=== PATIENT | female | born 1950 ===

== ENCOUNTER 2022-12-12 19:15 | Inpatient (IN) | payer OTHER, SELFPAY ==
--- OUTSIDE RECORDS SUMMARY | 2022-12-12 19:19 | XMS_ITS | Continuity of Care Document ---
Author Name Unknown Organization [facility] Address [address] [place] [address]- Care Team Providers Care Knife Setter Assembler Name Role Phone Loida CONTRERAS, Phill Skelton Primary Care Physician Encounter [facility] [place] Date(s): 06/12/20 - 07/12/20 [facility] [address] [place] [address]- Attending Physician: Doc Zapata Admitting Physician: Doc Zapata Referring Physician: AdmDoc hudson Allergies, Adverse Reactions, Alerts Substance Reaction Severity Status sulfa drugs Active Nickel Active Medications raloxifene 60 mg oral tablet 0 Refills, Maintenance, 06/13/20 7:07:00 EST, Partial fill upon patient request if the prescriptionis for a schedule II opioid drug. Start Date: 06/13/20 Status: Ordered Problem List Condition Effective Dates Status Health Status Inform ant Osteoporosis(Confirmed) Active Social History Social History Type Response Smoking Status Never smoker entered on: 06/12/14 Sex
--- OUTSIDE RECORDS SUMMARY | 2022-12-12 19:19 | XMS_ITS | Continuity of Care Document ---
Author Name Unknown Organization [facility] ter Address [address] [place] [address]- Care Team Providers Care Chemist Name Role Phone Phill Mariscal MD Primary Care Physician Encounter [facility] [place] Date(s): 10/20/19 - 10/21/[address] [address]- [facility] Attending Physician: Phill Mariscal MD Allergies, Adverse Reactions, Alerts Substance Reaction Severity Status sulfa drugs Active Nickel Active Problem List Condition Effective Dates Status Health Status Inform ant Osteoporosis(Confirmed) Active Social History Social History Type Response Smoking Status Never smoker entered on: 06/12/14 Sex
--- OUTSIDE RECORDS SUMMARY | 2022-12-12 19:19 | XMS_ITS | Continuity of Care Document ---
Author Name Unknown Organization [facility] Address [address] [facility], [address] [place] [address]- Care Team Providers Care Surveillance Sensor Operator Name Role Phone Phill Mariscal MD Primary Care Physician [phone] Encounter 06/29/21 - 07/06/21 [facility] [address], [facility] [address] [place] [address]- Attending Physician: Phill Mariscal MD Admitting Physician: Phill Mariscal MD Referring Physician: Phill Mariscal MD Allergies, Adverse Reactions, Alerts Substance Reaction Severity Status sulfa drugs Active Nickel Active Medications raloxifene 60 mg oral tablet 1 tablet = 60 mg, By Mouth, Daily, # 90 tablet, 6 Refills, Maintenance, 02/15/21 9:56:00 EST, Tablet, [facility] #[id number], 158, cm, 02/15/21 9:27:00 EST, Height Start Date: 02/15/21 Status: Ordered Problem List Condition Effective Dates Status Health Status Inform ant Osteoporosis(Confirmed) Active Social History Social History Type Response Smoking Status Never smoker entered on: 06/12/14 Sex
--- OUTSIDE RECORDS SUMMARY | 2022-12-12 19:19 | XMS_ITS | Continuity of Care Document ---
Author Name Unknown Organization [facility] Address [address] [facility], [address] [place] [address]- Care Team Providers Care Personal Lines Account Manager Name Role Phone Loida CONTRERAS, Phill Skelton Primary Care Physician Encounter 06/29/21 - 07/06/21 [facility] [address], [facility] [address] [place] [address]- Attending Physician: [facility] , Self Referral Admitting Physician: [facility] , Self Referral Referring Physician: [facility] , Self Referral Allergies, Adverse Reactions, Alerts Substance Reaction Severity Status sulfa drugs Active Nickel Active Medications raloxifene 60 mg oral tablet 1 tablet = 60 mg, By Mouth, Daily, # 90 tablet, 6 Refills, Maintenance, 02/15/21 9:56:00 EST, Tablet, [id number], 158, cm, 02/15/21 9:27:00 EST, Height Start Date: 02/15/21 Status: Ordered Problem List Condition Effective Dates Status Health Status Inform ant Osteoporosis(Confirmed) Active Social History Social History Type Response Smoking Status Never smoker entered on: 06/12/14 Sex
--- OUTSIDE RECORDS SUMMARY | 2022-12-12 19:19 | XMS_ITS | Continuity of Care Document ---
Author Name Unknown Organization [facility] Address [address] [place] [address]- Care Team Providers Care Synthetic Staple Extruder Name Role Phone Phill Mariscal MD Primary Care Physician Encounter [facility] [place] Date(s): 03/29/22 - 04/28/22 [facility] [address] [place] [address]- Allergies, Adverse Reactions, Alerts Substance Reaction Severity Status sulfa drugs Active Nickel Active Medications raloxifene 60 mg oral tablet 1 tablet = 60 mg, By Mouth, Daily, # 90 tablet, 1 Refills, Maintenance, 03/29/22 8:53:00 EST, Tablet, [id number], 158, cm, 02/15/21 9:27:00 EST, Height Start Date: 03/29/22 Status: Ordered Problem List Condition Confirmation Course Effective Dates Status Health St [facility] Informant Osteoporosis Confirmed Active Social History Social History Type Response Smoking Status Never smoker entered on: 06/12/14 Sex Patient Care team information Care Team Personnel Name: Phill Mariscal MD Position: S Physician -Physician Practices Member Role: PCP Address: Address: [address] [place] [id number] [place] [address] Care Team Related Persons Name: MIRNA KAUR Address: home [address] [place] [id number]
--- OUTSIDE RECORDS SUMMARY | 2022-12-12 19:19 | XMS_ITS | Continuity of Care Document ---
Author Name Unknown Organization [facility] Address [address] [facility] [address] [place] [address]- Care Team Providers Care Culinary Assistant Name Role Phone Loida CONTRERAS, Phill Skelton Primary Care Physician [phone] Encounter 01/30/21 - 02/06/21 [facility] [address] [facility], [address] [place] [address]- Attending Physician: Claudine Neely MD Admitting Physician: Claudine Neely MD Referring Physician: Claudine Neely MD Allergies, Adverse Reactions, Alerts Substance Reaction Severity Status sulfa drugs Active Nickel Active Medications raloxifene 60 mg oral tablet 0 Refills, Maintenance, 06/13/20 7:07:00 EST, Partial fill upon patient request if the prescriptionis for a schedule II opioid drug. Start Date: 06/13/20 Status: Ordered Problem List Condition Effective Dates Status Health Status Inform ant Osteoporosis(Confirmed) Active Results Radiology Reports * Exam Date Time Procedure Performing Provider Status 01/30/21 3:25 PM Dexa Bone Density (Axial) VoJuani daniels di A; Auth (Verified) Notes: (Dexa Bone Density (Axial)) Reason For Exam: Osteoporosis RESULT: DEXA BONE DENSITY (AXIAL) Bone Density Report Name: SUSANA KAUR Age: 70 Sex: Female Ethnicity: White Date of : 1950 Indication: OSTEOPOROSIS. Referring Provider: CLAUDINE NEELY Study: Bone densitometry was performed. Exam Date: January 30, 2021 Accession number: [id number] Bone Density: Region BMD T-score Z-score Classification AP Spine (L1-L4) 0.714 -3.0 -0.9 Osteoporosis Femoral Neck (Left) 0.524 -2.9 -1.1 Osteoporosis Total Hip (Left) 0.626 -2.6 -1.1 Osteoporosis World Health Organization criteria for BMD impression classify patients as: Normal (T-score at or above -1.0), Osteopenia (T-score between -1.0 and -2.5), or Osteoporosis (T-score at or below -2.5). 10-year Fracture Risk: FRAX not reported because: Some T-score for Spine Total or Hip Total or Femoral Neck at or below -2.5 Treated for osteoporosis Previous Exams: Region Exam Age BMD T-score BMD Change BMD Change Date g/cm2 vs Baseline vs Previous AP Spine(L1-L4) 01/30/2021 70 0.714 -3.0 3.5%* 4.6%* 12/18/2018 68 0.683 -3.3 -1.0% -1.0% 07/13/2015 65 0.690 -3.2 Total Hip(Left) 01/30/2021 70 0.626 -2.6 -0.6% 0.8% 12/18/2018 68 0.621 -2.6 -1.4% -1.4% 07/13/2015 65 0.630 -2.6 Femoral Neck(Left) 01/30/2021 70 0.524 -2.9 -0.8% 11.0%* 12/18/2018 68 0.472 -3.4 -10.7%* -10.7%* 07/13/2015 65 0.528 -2.9 *Denotes significance at 95% confidence level, LSC for AP Spine = 0.022 g/cm2, LSC for Total Hip = 0.027 g/cm2 Clinical Information Provided by Patient: Is being treated for osteoporosis Has used the following medications: Evista (i.e. raloxifene), Fosamax (i.e. alendronate), Prolia (i.e. denosumab), Vitamin D, Calcium Patient maximum height was 64 Menopause Age: 55 Onset of menses at age 14 Number of children 2 Impression: The patient has osteoporosis as determined by WHO criteria. Based on the results of the patient's bone density assessment, the risk of future fracture increases approximately two fold for each 1.0 SD decrease in T-score. However, low BMD is not the only risk factor for a future fragility fracture. Other clinical risk factors for osteoporotic fracture should be considered in ascertaining this patient's future fracture risk including the patient's age, previous osteoporotic (fragility) fracture, estrogen deficiency/hypogonadism, risk of falling, use of medications implicated in bone loss (glucocorticoids), family history of osteoporotic fracture, diseases and conditions associated with bone loss, low body weight, smoking, high bone turnover, etc. Combining low BMD and other clinical risk factors result in a more precise assessment of future fracture risk. Secondary causes for osteoporosis, such as osteomalacia, other metabolic bone disorders, and diseases and conditions that may contribute to accelerated bone loss may have to be considered depending on the clinical situation. A repeat bone density assessment should be considered in two years. Reported by: Monique Centeno M.D. on 02/02/2021 2:14:00 PM. Dictated By: Monique Centeno MD Dictated Date/Time: 02/02/21 2:15 pm Reviewed By: Monique Centeno MD Signed By: Monique Centeno MD Signed Date/Time: 02/02/21 2:15 pm Transcribed By: CSMukesh Transcribed Date/Time: 02/02/21 2:15 pm Social History Social History Type Response Smoking Status Never smoker entered on: 06/12/14 Sex
--- OUTSIDE RECORDS SUMMARY | 2022-12-12 19:19 | XMS_ITS | Continuity of Care Document ---
Author Name Unknown Organization [facility] Address [address] [place] [address]- Care Team Providers Care Kiln Labourer Name Role Phone Phill Mariscal MD Primary Care Physician [phone] Encounter [facility] [place] Date(s): 06/12/22 - 10/10/22 [facility] [address] [place] [address] Attending Physician: Claudine Neely MD Admitting Physician: Claudine Neely MD Referring Physician: Phill Mariscal MD Allergies, [...] Team Personnel Name: Phill Mariscal MD Position: [facility] Physician - Primary Care Member Role: PCP Address: Address: [address] [place] [id number] [place] [address] Care Team Related Persons Name: MIRNA KAUR Address: home [address] [place] [address]
--- OUTSIDE RECORDS SUMMARY | 2022-12-12 19:19 | XMS_ITS | Continuity of Care Document ---
Author Name Unknown Organization [facility] Address [address] [place] [address]- Care Team Providers Care Research Physician Name Role Phone Loida CONTRERAS, Phill Skelton Primary Care Physician [phone] Encounter [facility] [place] Date(s): 06/29/21 - 07/29/21 [facility] [address] [place] [address] Allergies, Adverse Reactions, Alerts Substance Reaction Severity [...]
--- OUTSIDE RECORDS SUMMARY | 2022-12-12 19:19 | XMS_ITS | Continuity of Care Document ---
Author Name Unknown Organization [facility] ter Address [address] [place] [address]- Care Team Providers Care Ophthalmology Surgical Technician Name Role Phone Phill Mariscal MD Primary Care Physician [phone] Encounter [facility] Date(s): 09/07/20 - 12/07/[address] [address] Attending Physician: Phill Mariscal MD Allergies, Adverse [...]
--- OUTSIDE RECORDS SUMMARY | 2022-12-12 19:19 | XMS_ITS | Continuity of Care Document ---
Author Name Unknown Organization [facility] ter Address [address] [place] [address]- Care Team Providers Care General Foundry Worker Name Role Phone Phill Mariscal MD Primary Care Physician Encounter [facility] Date(s): 12/06/19 - 12/07/[address] [address]- [facility] Attending Physician: Phill Mariscal MD Allergies, Adverse Reactions, Alerts Substance Reaction Severity Status sulfa drugs Active Nickel Active Problem List Condition Effective Dates Status Health Status Inform ant Osteoporosis(Confirmed) Active Social History Social History Type Response Smoking Status Never smoker entered on: 06/12/14 Sex
--- OUTSIDE RECORDS SUMMARY | 2022-12-12 19:19 | XMS_ITS | Continuity of Care Document ---
Author Name Unknown Organization [facility] ter Address [address] [place] [address]- Care Team Providers Care Bariatric Nurse Name Role Phone Phill Mariscal MD Primary Care Physician [phone] Encounter [facility] Date(s): 12/31/19 - 01/01/[address] [address]- [facility] Attending Physician: Phill Mariscal MD Allergies, Adverse Reactions, Alerts Substance Reaction Severity Status sulfa drugs Active Nickel Active Problem List Condition Effective Dates Status Health Status Inform ant Osteoporosis(Confirmed) Active Social History Social History Type Response Smoking Status Never smoker entered on: 06/12/14 Sex
--- OUTSIDE RECORDS SUMMARY | 2022-12-12 19:19 | XMS_ITS | Continuity of Care Document ---
Author Name Unknown Organization [facility] Address [address] [facility], [address] [place] [address]- Care Team Providers Care Hydrotherapist Name Role Phone Phill Mariscal MD Primary Care Physician Encounter 04/28/20 - 05/05/20 [facility] [address], [address] [place] [address]- Attending Physician: Phill Mariscal MD Admitting Physician: Phill Mariscal MD Referring Physician: Phill Mariscal MD Allergies, Adverse Reactions, Alerts Substance Reaction Severity Status sulfa drugs Active Nickel Active Problem List Condition Effective Dates Status Health Status Inform ant Osteoporosis(Confirmed) Active Social History Social History Type Response Smoking Status Never smoker entered on: 06/12/14 Sex
--- OUTSIDE RECORDS SUMMARY | 2022-12-12 19:19 | XMS_ITS | Continuity of Care Document ---
Author Name Unknown Organization [facility] Address [address] [place] [address]- Care Team Providers Care Supervisor Shuttle Preparation Name Role Phone Phill Mariscal MD Primary Care Physician [phone] Encounter [facility] [place] Date(s): 03/28/22 - 04/27/22 [facility] [address] [place] [address]- Allergies, Adverse Reactions, Alerts Substance Reaction Severity [...] -Physician Practices Member Role: PCP Address: Address: [address] [place] [phone] [place] [address] Care Team Related Persons Name: MIRNA KAUR Address: home [address] [place] [address]
--- OUTSIDE RECORDS SUMMARY | 2022-12-12 19:19 | XMS_ITS | Continuity of Care Document ---
Author Name Unknown Organization [facility] Address [address] [place] [address]- Care Team Providers Care Car Seat Upholsterer Name Role Phone Phill Mariscal MD Primary Care Physician Encounter [facility] Date(s): 09/10/22 - 10/10/22 [facility] [address] [place] [address] Attending Physician: AdmDoc hudson Admitting Physician: Admtr, Doc Referring Physician: AdmtrDoc Allergies, Adverse Reactions, Alerts Substance Reaction Severity [...] Team Personnel Name: Phill Mariscal MD Position: [facility] Physician - Primary Care Member Role: PCP Address: Address: [address] [place] [id number] [place] [address] Care Team Related Persons Name: MIRNA KAUR Address: home [address] [place] [address]
--- OUTSIDE RECORDS SUMMARY | 2022-12-12 19:19 | XMS_ITS | Continuity of Care Document ---
Author Name Unknown Organization [facility] Address [address] [place] [address]- Care Team Providers Care Editor Managing Director Name Role Phone Phill Mariscal MD Primary Care Physician En[place] [facility] Date(s): 11/16/21 - 03/16/22 [facility] [address] [place] [address] Attending Physician: Claudine Neely MD Admitting Physician: [...] Date: 02/15/21 Status: Ordered Problem List Condition Confirmation Course Effective Dates Status Health [facility] Informant Osteoporosis Confirmed Active Social History Social History Type Response Smoking Status Never smoker entered on: 06/12/14 Sex Patient Care team information Care Team Personnel Name: Phill Mariscal MD Position: [facility] Physician -Physician Practices Member Role: PCP Address: Address: [address] [place] [phone] [place] [address] Care Team Related Persons Name: MIRNA KAUR Address: home [address] [place] [phone]
[2022-12-12 22:02] VITALS: BP 127/63; PULSE 77; TEMP 36.9; O2SAT 98
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
[2022-12-13 08:00] VITALS: BP 125/71; PULSE 74; RESP 17; TEMP 36.1; O2SAT 97
[2022-12-13 08:24] LABS: Estimated Average Glucose 100 mg/dL; Hemoglobin A1c % 5.1 % (<6.0)
[2022-12-13 08:38] LABS: Alanine Aminotransferase 20 U/L (0-31); Albumin Level 4.1 g/dL (3.5-5.0); Alkaline Phosphatase 59 U/L (39-117); Anion Gap 12 (12-20); Aspartate Amino Transferase 22 U/L (5-31); Bilirubin Total 0.5 mg/dL (0.0-1.0); Blood Urea Nitrogen 15 mg/dL (9-16); Calcium 9.9 mg/dL (8.4-10.2); Carbon Dioxide 27 mmol/L (22-29); Chloride 105 mmol/L (96-108); Cholesterol 182 mg/dL (<200); Estimated Glomerular Filt Rate 59; Glucose Fasting 109 mg/dL (60-99); HDL Cholesterol 69 mg/dL (>40); LDL Cholesterol Calculated 95 mg/dL (<100); Potassium 4.3 mmol/L (3.3-5.1); Sodium 140 mmol/L (135-145); Total Protein 6.8 g/dL (6.5-8.0); Triglycerides 94 mg/dL (<150)
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
[2022-12-13 08:54] LABS: Thyroid Stimulating Hormone 2.24 uIU/mL (0.32-4.0)
[2022-12-13 09:12] LABS: Folate 13.4 ng/mL (> or = 4.0); Vitamin B12 1029 pg/mL (200-900)
[2022-12-13] MEDS: Acetaminophen 325 MG TABLET 650 MG PO (09:42)
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
[2022-12-13 19:40] VITALS: BP 149/59; PULSE 85; RESP 18; TEMP 36.4; O2SAT 97
[2022-12-14 08:00] VITALS: BP 103/55; PULSE 80; RESP 16; TEMP 36.9; O2SAT 97
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
[2022-12-14 18:00] VITALS: BP 128/66; PULSE 77; RESP 19; TEMP 36.2; O2SAT 97
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
[2022-12-15 07:45] VITALS: BP 122/72; PULSE 91; RESP 16; TEMP 36.4; O2SAT 97
[2022-12-15] MEDS: Acetaminophen 325 MG TABLET 650 MG PO (11:22)
--- NOTE | 2022-12-15 15:44 | HO.PSYCHPN ---
Subjective Subjective Date of Service: 12/15/22 Reason For Visit: Delusional Interim History: Remains reluctant to discuss pre-admission circumstances ie neighbor, police, escalation of being targeted, but trying not to talk about this as she cannot prove anything . Reports feeling safe in the hospital. Denied depression. No medication concerns. Still does not believe she needs any antipsychotic medications- declined OLZ. Medication Compliance: No Side effects from medications: No Attending Groups: Yes Review of Systems Acute medical concerns: No Review of Systems Review of Systems Unremarkable Mental Status Exam Mental Status Exam Patient Appearance: Appropriate Patient Orientation: Person, Place and Situation Level of Consciousness: Awake and Appropriate Patient Behavior: Guarded and Passive Mood Description: Withdrawn and Constricted Affect Description: Constricted Patient Cognition Impaired: Yes Ability to Follow Directions: Good Speech Pattern: Clear Diagnostics Vital Signs (24Hr): Vital Signs - 24 hr 12/14/22 18:00 12/15/22 07:45 Temperature 97.2 F 97.5 F Pulse Rate 77 91 Respiratory Rate 19 16 Blood Pressure 128/66 122/72 Pulse Oximetry 97 97 Oxygen Delivery Method Room Air Room Air Labs 12/13/22 08:08 Medications Medications Current Medications Acetaminophen (Acetaminophen 325 Mg Tablet) 650 mg PO Q6H PRN PRN Reason: Headache/Pain Mild Scale (1-3) Last Admin: 12/15/22 11:22 Dose: 650 mg Al Hydroxide/Mg Hydroxide (Magnesium Hydrox/Alum Hydrox 30 Ml Oral.Susp) 30 ml PO Q6H PRN PRN Reason: Heartburn/Nausea Hydroxyzine HCl (Hydroxyzine Hcl 25 Mg Tablet) 25 mg PO Q6H PRN PRN Reason: Anxiety Magnesium Hydroxide (Milk Of Magnesia 30 Ml Oral.Susp) 30 ml PO DAILY PRN PRN Reason: Constipation Olanzapine (Olanzapine 2.5 Mg Tablet) 2.5 mg PO BEDTIME OLIVE Last Admin: 12/14/22 20:34 Dose: Not Given Trazodone HCl (Trazodone Hcl 50 Mg Tablet) 50 mg PO BEDTIME PRN PRN Reason: Insomnia Allergies Allergies Allergy/AdvReac Type Severity Reaction Status Date / Time nickel Allergy Gastrointestinal Verified 12/12/22 21:18 Upset Sulfa (Sulfonamide Allergy Anaphylaxis Verified 12/12/22 21:18 Antibiotics) Assessment & Plan Assessment & Plan (1) Psychosis: Status: Acute Code(s): F29 - Unspecified psychosis not due to a substance or known physiological condition Assessment and Plan: The patient is an elderly female with a long history of psychotic symptoms and paranoia for the last 15 years but able to be functional in the community that was brought into the emergency room of another hospital for somatic symptoms such as vaginal bleeding and abdominal pain that she attributes to her did lucid thinking. The patient has never been treated before and she adamantly denies suicidal ideation even though that in on admission there were some concerns from the family about suicidality. Plan 1. Gather collateral information, we will try to contact the family and get more information. 2. The patient signed a conditional voluntary and and she was able to understand Casas warning. 3. We will continue medical workout. 4. I offer her a low dose of olanzapine at night 2.5 p.o. q.h.s. to target psychosis. 5. Start with mirtazapine for depression. 12/15/22: started OLZ, but declining same Reason for continued inpatient stay Substantial Risk for: inability to function and rapid decompensation Time Spent With Patient Time: Total time managing care of this patient today ____ minutes.
[2022-12-15 18:00] VITALS: BP 126/59; PULSE 86; RESP 17; TEMP 36.5; O2SAT 99
[2022-12-16 08:00] VITALS: BP 129/62; PULSE 79; RESP 18; TEMP 36.7; O2SAT 96
[2022-12-16] MEDS: Acetaminophen 325 MG TABLET 650 MG PO (10:10)
[2022-12-16 10:14] VITALS: BMI 20.7
--- NOTE | 2022-12-16 15:19 | HO.PSYCHPN ---
Subjective Subjective Date of Service: 12/16/22 Reason For Visit: Delusional Subjective Notes: Conditional Voluntary Interim History: The nursing staff reported the patient had been alert oriented x4 guarded disorganized at times stating that she had been having and Stalker. She slept well last night. She had been refusing her Zyprexa at night for the last 2 days. Today we had a long conversation and she agreed to try medications over the night to see if she could have side effects. Mental Status Exam Mental Status Exam Patient Appearance: Well Grooomed and Appropriate Patient Orientation: Person, Place and Situation Level of Consciousness: Awake and Appropriate Patient Behavior: Guarded and Passive Mood Description: Calm Affect Description: Constricted Patient Cognition Impaired: Yes Ability to Follow Directions: Good Speech Pattern: Clear Hallucinations: None Delusions: Not Present Thought Process: Linear Thought Content: positive for [place] and positive for Circumstantial Judgement: Fair Diagnostics Vital Signs (24Hr): Vital Signs - 24 hr 12/15/22 18:00 12/16/22 08:00 Temperature 97.7 F 98.0 F Pulse Rate 86 79 Respiratory Rate 17 18 Blood Pressure 126/59 L 129/62 Pulse Oximetry 99 96 Oxygen Delivery Method Room Air Room Air BMI result Body Mass Index 20.7 Labs 12/13/22 08:08 Medications Medications Current Medications Acetaminophen (Acetaminophen 325 Mg Tablet) 650 mg PO Q6H PRN PRN Reason: Headache/Pain Mild Scale (1-3) Last Admin: 12/16/22 10:10 Dose: 650 mg Al Hydroxide/Mg Hydroxide (Magnesium Hydrox/Alum Hydrox 30 Ml Oral.Susp) 30 ml PO Q6H PRN PRN Reason: Heartburn/Nausea Hydroxyzine HCl (Hydroxyzine Hcl 25 Mg Tablet) 25 mg PO Q6H PRN PRN Reason: Anxiety Magnesium Hydroxide (Milk Of Magnesia 30 Ml Oral.Susp) 30 ml PO DAILY PRN PRN Reason: Constipation Olanzapine (Olanzapine 2.5 Mg Tablet) 2.5 mg PO BEDTIME OLIVE Last Admin: 12/15/22 20:17 Dose: Not Given Trazodone HCl (Trazodone Hcl 50 Mg Tablet) 50 mg PO BEDTIME PRN PRN Reason: Insomnia Allergies Allergies Allergy/AdvReac Type Severity Reaction Status Date / Time nickel Allergy Gastrointestinal Verified 12/12/22 21:18 Upset Sulfa (Sulfonamide Allergy Anaphylaxis Verified 12/12/22 21:18 Antibiotics) Assessment & Plan Assessment & Plan (1) Psychosis: Status: Acute Code(s): F29 - Unspecified psychosis not due to a substance or known physiological condition Assessment and Plan: The patient is an elderly female with a long history of psychotic symptoms and paranoia for the last 15 years but able to be functional in the community that was brought into the emergency room of another hospital for somatic symptoms such as vaginal bleeding and abdominal pain that she attributes to her did lucid thinking. The patient has never been treated before and she adamantly denies suicidal ideation even though that in on admission there were some concerns from the family about suicidality. Plan 1. Gather collateral information, we will try to contact the family and get more information. 2. The patient signed a conditional voluntary and and she was able to understand Casas warning. 3. We will continue medical workout. 4. I offer her a low dose of olanzapine at night 2.5 p.o. q.h.s. to target psychosis. Reason for continued inpatient stay Substantial Risk for: inability to function, rapid decompensation and med/psych decompensation Time Spent With Patient Time: Total time managing care of this patient today ___20_ minutes.
[2022-12-16 18:00] VITALS: BP 126/60; PULSE 80; RESP 18; TEMP 36.6; O2SAT 99
[2022-12-16] MEDS: OLANZapine 2.5 MG TABLET PO (20:03)
[2022-12-17 09:30] VITALS: BP 116/57; PULSE 71; RESP 16; TEMP 36.9; O2SAT 99
--- NOTE | 2022-12-17 11:51 | P.PNPSI_ITS ---
Subjective Subjective Date of Service: 12/17/22 Reason For Visit: Delusional Subjective Notes: Conditional Voluntary Interim History: The nursing staff reported the patient tried for the 1st time Zyprexa night and she slept 8 hours. The staff has reported that she still perseverative regarding her Stalker. On interview we talk a little more about heard elusive thinking but she is adamant that she had been harassed by her Stalker. She denies side effects with Zyprexa. Mental Status Exam Mental Status Exam Patient Appearance: Appropriate Patient Orientation: Person and Situation Level of Consciousness: Awake and Appropriate Patient Behavior: Guarded and Passive Mood Description: Withdrawn Affect Description: Calm Patient Cognition Impaired: Yes Ability to Follow Directions: Good Speech Pattern: Clear Hallucinations: None Delusions: Paranoid Ideation Thought Process: Distracted and Evasive Thought Content: positive for Intact Judgement: Fair Diagnostics Vital Signs (24Hr): Vital Signs - 24 hr 12/16/22 18:00 12/17/22 09:30 Temperature 97.8 F 98.4 F Pulse Rate 80 71 Respiratory Rate 18 16 Blood Pressure 126/60 116/57 L Pulse Oximetry 99 99 Oxygen Delivery Method Room Air Room Air BMI result Body Mass Index 20.7 Labs 12/13/22 08:08 Medications Medications Current Medications Acetaminophen (Acetaminophen 325 Mg Tablet) 650 mg PO Q6H PRN PRN Reason: Headache/Pain Mild Scale (1-3) Last Admin: 12/16/22 10:10 Dose: 650 mg Al Hydroxide/Mg Hydroxide (Magnesium Hydrox/Alum Hydrox 30 Ml Oral.Susp) 30 ml PO Q6H PRN PRN Reason: Heartburn/Nausea Hydroxyzine HCl (Hydroxyzine Hcl 25 Mg Tablet) 25 mg PO Q6H PRN PRN Reason: Anxiety Magnesium Hydroxide (Milk Of Magnesia 30 Ml Oral.Susp) 30 ml PO DAILY PRN PRN Reason: Constipation Olanzapine (Olanzapine 2.5 Mg Tablet) 2.5 mg PO BEDTIME [facility] Last Admin: 12/16/22 20:03 Dose: 2.5 mg Trazodone HCl (Trazodone Hcl 50 Mg Tablet) 50 mg PO BEDTIME PRN PRN Reason: Insomnia Allergies Allergies Allergy/AdvReac Type Severity Reaction Status Date / Time nickel Allergy Gastrointestinal Verified 12/12/22 21:18 Upset Sulfa (Sulfonamide Allergy Anaphylaxis Verified 09/07/23 21:18 Antibiotics) Assessment & Plan Assessment & Plan (1) Psychosis: Status: Acute Code(s): F29 - Unspecified psychosis not due to a substance or known physiological condition Assessment and Plan: The patient is an elderly female with a long history of psychotic symptoms and paranoia for the last 15 years but able to be functional in the community that was brought into the emergency room of another hospital for somatic symptoms such as vaginal bleeding and abdominal pain that she attributes to her did lucid thinking. The patient has never been treated before and she adamantly denies suicidal ideation even though that in on admission there were some concerns from the family about suicidality. Plan 1. Gather collateral information, we will try to contact the family and get more information. 2. The patient signed a conditional voluntary and and she was able to understand Casas warning. 3. We will continue medical workout. 4. I offer her a low dose of olanzapine at night 2.5 p.o. q.h.s. to target psychosis. Reason for continued inpatient stay Substantial Risk for: inability to function, rapid decompensation and med/psych decompensation Time Spent With Patient Time: Total time managing care of this patient today __20__ minutes.
[2022-12-17 18:00] VITALS: BP 111/58; PULSE 73; RESP 17; TEMP 36.2; O2SAT 99
[2022-12-17] MEDS: OLANZapine 2.5 MG TABLET PO (21:57)
[2022-12-18 09:13] VITALS: BP 102/58; PULSE 85; RESP 18; TEMP 36.1; O2SAT 97
--- NOTE | 2022-12-18 14:54 | HO.PSYCHPN ---
Subjective Subjective Date of Service: 12/18/22 Reason For Visit: Delusional Subjective Notes: Conditional Voluntary Interim History: The nursing staff reported the patient does not have any insight into her paranoia and elusive thinking regarding her Stalker. She was seen in the common areas watching TV and social. The occupational therapist reported that she scored 27/30 on the [place] test and 5.6 on the [place] test. There is no evidence of dementia. Today we had a family meeting with her daughter, we explained her diagnosis and she agreed to the disposition plan to go back home with outpatient services next Friday. On interview the patient denies new symptoms, no side effects with Zyprexa. Mental Status Exam Mental Status Exam Patient Appearance: Well Grooomed and Appropriate Patient Orientation: Person, Place, Time and Situation Level of Consciousness: Awake and Appropriate Patient Behavior: Appropriate and Passive Mood Description: Calm Affect Description: Constricted Patient Cognition Impaired: No Ability to Follow Directions: Good Speech Pattern: Clear Hallucinations: None Delusions: Not Present Thought Process: Linear Thought Content: positive for Circumstantial Judgement: Fair Diagnostics Vital Signs (24Hr): Vital Signs - 24 hr 12/17/22 18:00 12/18/22 09:13 Temperature 97.2 F 97.0 F Pulse Rate 73 85 Respiratory Rate 17 18 Blood Pressure 111/58 L 102/58 L Pulse Oximetry 99 97 Oxygen Delivery Method Room Air Room Air BMI result Body Mass Index 20.7 Labs 12/13/22 08:08 Medications Medications Current Medications Acetaminophen (Acetaminophen 325 Mg Tablet) 650 mg PO Q6H PRN PRN Reason: Headache/Pain Mild Scale (1-3) Last Admin: 12/16/22 10:10 Dose: 650 mg Al Hydroxide/Mg Hydroxide (Magnesium Hydrox/Alum Hydrox 30 Ml Oral.Susp) 30 ml PO Q6H PRN PRN Reason: Heartburn/Nausea Hydroxyzine HCl (Hydroxyzine Hcl 25 Mg Tablet) 25 mg PO Q6H PRN PRN Reason: Anxiety Magnesium Hydroxide (Milk Of Magnesia 30 Ml Oral.Susp) 30 ml PO DAILY PRN PRN Reason: Constipation Olanzapine (Olanzapine 2.5 Mg Tablet) 2.5 mg PO BEDTIME [facility]IVE Last Admin: 12/17/22 21:57 Dose: 2.5 mg Trazodone HCl (Trazodone Hcl 50 Mg Tablet) 50 mg PO BEDTIME PRN PRN Reason: Insomnia Allergies Allergies Allergy/AdvReac Type Severity Reaction Status Date / Time nickel Allergy Gastrointestinal Verified 12/12/22 21:18 Upset Sulfa (Sulfonamide Allergy Anaphylaxis Verified 12/12/22 21:18 Antibiotics) Assessment & Plan Assessment & Plan (1) Psychosis: Status: Acute Code(s): F29 - Unspecified psychosis not due to a substance or known physiological condition Assessment and Plan: The patient is an elderly female with a long history of psychotic symptoms and paranoia for the last 15 years but able to be functional in the community that was brought into the emergency room of another hospital for somatic symptoms such as vaginal bleeding and abdominal pain that she attributes to her did lucid thinking. The patient has never been treated before and she adamantly denies suicidal ideation even though that in on admission there were some concerns from the family about suicidality. Plan 1. Gather collateral information, we will try to contact the family and get more information. 2. The patient signed a conditional voluntary and and she was able to understand Casas warning. 3. We will continue medical workout. 4. I offer her a low dose of olanzapine at night 2.5 p.o. q.h.s. to target psychosis. Reason for continued inpatient stay Substantial Risk for: inability to function, rapid decompensation and med/psych decompensation Time Spent With Patient Time: Total time managing care of this patient today __20__ minutes.
[2022-12-18 19:40] VITALS: BP 148/68; PULSE 90; RESP 18; TEMP 35.8; O2SAT 98
[2022-12-18] MEDS: OLANZapine 2.5 MG TABLET PO (21:00)
[2022-12-19 07:00] VITALS: BMI 21.0
[2022-12-19 07:54] VITALS: BP 132/71; PULSE 64; RESP 20; TEMP 36.2; O2SAT 100
--- NOTE | 2022-12-19 11:37 | HO.PSYCHPN ---
Subjective Subjective Date of Service: 12/19/22 Reason For Visit: Delusional Subjective Notes: Conditional Voluntary Interim History: The nursing staff reported the patient had been pleasant, cooperative she showered yesterday and she did not verbalize any issues. She slept well last night. On interview, the patient denies new symptoms she is aware that she is going to be discharged next Friday. Mental Status Exam Mental Status Exam Patient Appearance: Well Grooomed and Appropriate Patient Orientation: Person, Place, Time and Situation Level of Consciousness: Awake and Appropriate Patient Behavior: Appropriate and Cooperative Mood Description: Calm Affect Description: Constricted Patient Cognition Impaired: No Ability to Follow Directions: Excellent Speech Pattern: Clear Hallucinations: None Delusions: Not Present Thought Process: Linear Thought Content: positive for Circumstantial Judgement: Fair Diagnostics Vital Signs (24Hr): Vital Signs - 24 hr 12/18/22 19:40 12/19/22 07:54 Temperature 96.5 F L 97.1 F Pulse Rate 90 64 Respiratory Rate 18 20 Blood Pressure 148/68 H 132/71 Pulse Oximetry 98 100 Oxygen Delivery Method Room Air Room Air BMI result Body Mass Index 20.7 Labs 12/13/22 08:08 Medications Medications Current Medications Acetaminophen (Acetaminophen 325 Mg Tablet) 650 mg PO Q6H PRN PRN Reason: Headache/Pain Mild Scale (1-3) Last Admin: 12/16/22 10:10 Dose: 650 mg Al Hydroxide/Mg Hydroxide (Magnesium Hydrox/Alum Hydrox 30 Ml Oral.Susp) 30 ml PO Q6H PRN PRN Reason: Heartburn/Nausea Hydroxyzine HCl (Hydroxyzine Hcl 25 Mg Tablet) 25 mg PO Q6H PRN PRN Reason: Anxiety Magnesium Hydroxide (Milk Of Magnesia 30 Ml Oral.Susp) 30 ml PO DAILY PRN PRN Reason: Constipation Olanzapine (Olanzapine 2.5 Mg Tablet) 2.5 mg PO BEDTIME OLIVE Last Admin: 12/18/22 21:00 Dose: 2.5 mg Trazodone HCl (Trazodone Hcl 50 Mg Tablet) 50 mg PO BEDTIME PRN PRN Reason: Insomnia Allergies Allergies Allergy/AdvReac Type Severity Reaction Status Date / Time nickel Allergy Gastrointestinal Verified 12/12/22 21:18 Upset Sulfa (Sulfonamide Allergy Anaphylaxis Verified 12/12/22 21:18 Antibiotics) Assessment & Plan Assessment & Plan (1) Psychosis: Status: Acute Code(s): F29 - Unspecified psychosis not due to a substance or known physiological condition Assessment and Plan: The patient is an elderly female with a long history of psychotic symptoms and paranoia for the last 15 years but able to be functional in the community that was brought into the emergency room of another hospital for somatic symptoms such as vaginal bleeding and abdominal pain that she attributes to her did lucid thinking. The patient has never been treated before and she adamantly denies suicidal ideation even though that in on admission there were some concerns from the family about suicidality. Plan 1. Gather collateral information, we will try to contact the family and get more information. 2. The patient signed a conditional voluntary and and she was able to understand Casas warning. 3. We will continue medical workout. 4. I offer her a low dose of olanzapine at night 2.5 p.o. q.h.s. to target psychosis. She has been compliant with this medication without side effects. 5. Discharge for Friday. Reason for continued inpatient stay Substantial Risk for: inability to function, rapid decompensation and med/psych decompensation Time Spent With Patient Time: Total time managing care of this patient today __20__ minutes.
[2022-12-19 19:35] VITALS: BP 126/72; PULSE 72; RESP 16; TEMP 36.7; O2SAT 97
[2022-12-19] MEDS: OLANZapine 2.5 MG TABLET PO ×2 (21:54→21:56)
[2022-12-20 08:09] VITALS: BP 123/59; PULSE 70; RESP 18; TEMP 36.1; O2SAT 98
--- NOTE | 2022-12-20 15:29 | HO.PSYCHPN ---
Subjective Subjective Date of Service: 12/20/22 Reason For Visit: Delusional Subjective Notes: Conditional Voluntary Interim History: The nursing staff reported the patient had been compliant with treatment, denies new symptoms pleasant and cooperative. On interview the patient denies new symptoms she is ready for discharge she is happy that she is going to be discharged tomorrow. No side effects with the current treatment Mental Status Exam Mental Status Exam Patient Appearance: Well Grooomed and Appropriate Patient Orientation: Person and Situation Level of Consciousness: Awake and Appropriate Patient Behavior: Guarded and Passive Mood Description: Calm Affect Description: Constricted Patient Cognition Impaired: Yes Ability to Follow Directions: Good Speech Pattern: Clear Hallucinations: None Delusions: Not Present Thought Process: Linear Thought Content: positive for Circumstantial Judgement: Fair Diagnostics Vital Signs (24Hr): Vital Signs - 24 hr 12/19/22 19:35 12/20/22 08:09 Temperature 98.1 F 96.9 F Pulse Rate 72 70 Respiratory Rate 16 18 Blood Pressure 126/72 123/59 L Pulse Oximetry 97 98 Oxygen Delivery Method Room Air Room Air BMI result Body Mass Index 21.0 Labs 12/13/22 08:08 Medications Medications Current Medications Acetaminophen (Acetaminophen 325 Mg Tablet) 650 mg PO Q6H PRN PRN Reason: Headache/Pain Mild Scale (1-3) Last Admin: 12/16/22 10:10 Dose: 650 mg Al Hydroxide/Mg Hydroxide (Magnesium Hydrox/Alum Hydrox 30 Ml Oral.Susp) 30 ml PO Q6H PRN PRN Reason: Heartburn/Nausea Hydroxyzine HCl (Hydroxyzine Hcl 25 Mg Tablet) 25 mg PO Q6H PRN PRN Reason: Anxiety Magnesium Hydroxide (Milk Of Magnesia 30 Ml Oral.Susp) 30 ml PO DAILY PRN PRN Reason: Constipation Olanzapine (Olanzapine 2.5 Mg Tablet) 2.5 mg PO BEDTIME OLIVE Last Admin: 12/19/22 21:56 Dose: 2.5 mg Trazodone HCl (Trazodone Hcl 50 Mg Tablet) 50 mg PO BEDTIME PRN PRN Reason: Insomnia Allergies Allergies Allergy/AdvReac Type Severity Reaction Status Date / Time nickel Allergy Gastrointestinal Verified 12/12/22 21:18 Upset Sulfa (Sulfonamide Allergy Anaphylaxis Verified 12/12/22 21:18 Antibiotics) Assessment & Plan Assessment & Plan (1) Psychosis: Status: Acute Code(s): F29 - Unspecified psychosis not due to a substance or known physiological condition Assessment and Plan: The patient is an elderly female with a long history of psychotic symptoms and paranoia for the last 15 years but able to be functional in the community that was brought into the emergency room of another hospital for somatic symptoms such as vaginal bleeding and abdominal pain that she attributes to her did lucid thinking. The patient has never been treated before and she adamantly denies suicidal ideation even though that in on admission there were some concerns from the family about suicidality. Plan 1. Gather collateral information, we will try to contact the family and get more information. 2. The patient signed a conditional voluntary and and she was able to understand Casas warning. 3. We will continue medical workout. 4. I offer her a low dose of olanzapine at night 2.5 p.o. q.h.s. to target psychosis. She has been compliant with this medication without side effects. 5. Discharge for Friday. Reason for continued inpatient stay Substantial Risk for: inability to function, rapid decompensation and med/psych decompensation Time Spent With Patient Time: Total time managing care of this patient today __20__ minutes.
--- NOTE | 2022-12-20 15:31 | PM.PSYDC ---
DS: Providers Provider Date of Service: 12/20/22 Date of admission: 12/12/22 19:15 Date of discharge: 12/20/22 Primary care physician: Unknown Physician Consults: 12/12/22 20:12 Consult to Hospitalist Routine Comment: Consulting Provider: Hospitalist Reason For Exam: medical H&P Attending physician on discharge: Cornell Trejo DS: Diagnosis Discharge Diagnosis (1) Psychosis: Status: Acute DS: Medications Discharge Medications Home Medications: Home Medications Medication Instructions Recorded Confirmed raloxifene 60 mg tablet 60 mg PO DAILY 12/12/22 12/12/22 Mental Status Exam Mental Status Exam Patient Appearance: Well Grooomed and Appropriate Patient Orientation: Person, Place, Time and Situation Level of Consciousness: Awake and Appropriate Patient Behavior: Guarded and Passive Mood Description: Calm Affect Description: Constricted Patient Cognition Impaired: No Ability to Follow Directions: Good Speech Pattern: Clear Hallucinations: None Delusions: Paranoid Ideation Thought Process: Linear Thought Content: positive for [place] and positive for Circumstantial Judgement: Fair DS: Summary Hospital Course Hospital Course: The patient is a 72-year-old female, highly functional was brought to the emergency room of another hospital for paranoid delusions. She was assessed, medically cleared and transferring to this facility for psychiatric stabilization. Please see the HPI of the admission note for further details. On the intake interview the patient reported that she had several medical comorbidities. She try to minimize her paranoia. Apparently the patient had been paranoid against an aches neighbor for the last 15 years and in the last years it has been worse to the point that she had to change her address several times. We gather collateral information her daughter reported that her symptoms worsened recently. 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 We discussed at length risks, benefits, side-effects and alternatives. It we started on Zyprexa 2.5 mg p.o. q.h.s. with no side effects. We had a family meeting and explained her diagnosis of delusional disorder and the difficulty to treated with antipsychotics but she will benefit of psychotherapy. The patient was open to explore psychotherapy and the probe referrals were done. Since there were no safety concerns discharge planning was done. Time spent discussing smoking cessation with patient: 3 to 10 minutes Status at Discharge Cognitive/behavioral status at discharge: Intact, she has court [place] 27/30 and her Mich test was normal Functional status at discharge: independent ambulation Overall status at discharge: patient is back to baseline Time Spent with Patient Time attestation: Total time managing care of this patient today __30__ minutes. Time spent: Less than 30 minutes Discharge Plan Discharge Anticipated Discharge Date/Time: 12/21/22 11:00 Patient Disposition: Home, Self-Care Discharge Diagnosis: Delusional disorder Referrals: Dr. Phill Mariscal -- PCP [Other] - 12/23/22 2:00 pm (Appointment: In-Person. 12/23/2022 @ 2pm ) Dr. Job Pearson - Psychiatrist [Other] - 01/14/23 3:00 pm (Appointment - Telehealth - Please use a phone that has video. 01/14/2023 @ 3pm ) Mental Health Therapist - [Other] - 1 Week (Appointment to be scheduled by your therapist (TBKelly)) Physician,Unknown J [Primary Care Provider] - 1 Week Discharge Medications: New olanzapine 2.5 mg Tablet 2.5 mg PO BEDTIME 30 Days Qty: 30 0RF Continued raloxifene 60 mg tablet 60 mg PO DAILY 30 Days Qty: 30 0RF Discharge Orders: Discharge Order (Routine); Ordered 12/21/22 Ordered By: Cornell Trejo Diet: Advance to usual diet Activity on Discharge: As tolerated Stand Alone Forms: Patient Portal Discharge page Care Plan Goals: Care plan goals review, no safety concerns on discharge Health Concerns: Continue with primary care physician Plan of Treatment: Continue psychotherapy medication management as an outpatient Assessment: Elderly female, highly functional with no cognitive impairment but 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 We started on Zyprexa with no side effects. Referred from outpatient treatment. Safe in the community
[2022-12-20 20:10] VITALS: BP 120/59; PULSE 76; RESP 16; TEMP 36.3; O2SAT 100
[2022-12-20] MEDS: OLANZapine 2.5 MG TABLET PO (21:44)
[2022-12-20] MEDS: Acetaminophen 325 MG TABLET 650 MG PO (23:48)
[2022-12-21 09:10] VITALS: BP 138/75; PULSE 83; RESP 18; TEMP 36.3; O2SAT 100
[2022-12-21] MEDS: Acetaminophen 325 MG TABLET 650 MG PO (09:13)
--- NOTE | 2022-12-21 09:16 | PC.NURSE ---
Patient requested tylenol due to headache, order reads 650mg and patient 325mg. Provider notified via [facility] connect
== END 2022-12-21 10:10 | disposition home or self-care (01) | DRG 885 ==
PROVIDERS: Social Worker; Admitting Provider Psychiatry & Neurology Psychiatry; Visit Provider Psychiatry & Neurology Psychiatry
DX: F22 Delusional disorders (principal); M81.0 Age-related osteoporosis without current pathological fracture; N84.0 Polyp of corpus uteri; Z79.899 Other long term (current) drug therapy
CPT/HCPCS: 36415; 80053; 80061; 82607; 82746; 83036; 84443

== ENCOUNTER → 2022-12-12 19:15 | Outpatient (BNV) | payer OTHER, SELFPAY | PROVIDERS: Admitting Provider Psychiatry & Neurology Psychiatry; Visit Provider Psychiatry & Neurology Psychiatry | DX: F29 Unspecified psychosis not due to a substance or known physiological condition (principal) | CPT/HCPCS: 99222; 99231; 99232; 99238 ==

== ENCOUNTER → 2022-12-12 19:15 | Outpatient (BNV) | payer OTHER, SELFPAY | PROVIDERS: Admitting Provider Psychiatry & Neurology Psychiatry; Visit Provider Student in an Organized Health Care Education/Training Program | DX: M81.0 Age-related osteoporosis without current pathological fracture (principal); R10.2 Pelvic and perineal pain | CPT/HCPCS: 99222 ==

== ENCOUNTER 2023-05-03 07:51 | Inpatient (IN) | payer OTHER, MEDICARE, SELFPAY ==
--- NOTE | ~2023-05-03 | XR_ITS ---
EXAMINATION: XR CHEST CLINICAL INFORMATION: Shortness of breath. COMPARISON: None available. TECHNIQUE: AP view of the chest was obtained. FINDINGS: Patient's rotation limits the evaluation. Normal heart size. Mild central vasculature congestion. Minimal asymmetric airspace densities projecting over the left lower lobe. No pleural effusion or pneumothorax. No acute osseous findings. Visualized upper abdomen is within normal limits. XR/XR chest 1V IMPRESSION: 1. Central vasculature congestion without overt pulmonary edema. 2. Subtle asymmetric focal airspace opacities projecting over the left lower lobe that could be related with bronchovascular crowding and subsegmental atelectasis, although aspiration/pneumonia cannot be excluded, recommend clinical correlation.
--- NOTE | ~2023-05-03 | CT_ITS ---
EXAMINATION: CT CHEST WITHOUT CONTRAST CLINICAL INFORMATION: Abnormal chest radiograph. COMPARISON: Chest radiograph 8:53 AM 05/03/2023. TECHNIQUE: Multidetector volumetric CT imaging of the chest was done. Axial MIP volume rendering provided. Sagittal and coronal reformatted images were obtained. This CT examination was performed using dose optimization techniques as appropriate, variously including the following: *Automated exposure control *Adjustment of mA and/or kV according to patient size (this includes techniques or standardized protocols for targeted exams where dose is matched to indication/reason for exam; i.e. extremities or head) *Use of iterative reconstruction technique DLP: 72 mGy-cm FINDINGS: LUNGS: Peribronchial and tree-in-bud airspace opacities with nodularities in the right middle lobe, lingula and right greater than left lower lobes. Associated bronchial wall thickening and bronchiectasis in the right middle lobe and lingula with some degree of volume loss. Multiple scattered more isolated pulmonary nodules, for example a 0.6 cm solid nodule in the left upper lobe (5:110) and a 0.9 x 0.5 cm pleural-based nodule in the right lung base (5:410). A few bilateral fissural base triangularly-shaped nodules are seen, most likely representing lymph nodes, for example measuring 0.5 cm along the left major fissure (5:239). MEDIASTINUM: Normal heart size. No pericardial effusion. No mediastinal lymphadenopathy. Evaluation of the hilar structures is limited in the absence of IV contrast. Postsurgical changes from possibly prior partial right-sided thyroidectomy. CORONARY ARTERY CALCIFICATION: Coronary artery calcifications are seen. PLEURA: No pleural effusion or pneumothorax. AXILLA: No lymphadenopathy. UPPER ABDOMEN: Mild left-sided hydronephrosis versus peripelvic cysts. Too small to characterize hypodensity in the lateral left hepatic lobe (3:44). OSSEOUS STRUCTURES: Multiple nondisplaced bilateral rib deformities, for instance left anterior second rib (5:115) and right anterolateral eighth rib (5:426). CT/CT chest wo IV con IMPRESSION: 1. Multifocal peribronchial and tree-in-bud opacities with associated bronchiectasis in the right middle lobe and lingula suggestive of an acute on chronic infectious/inflammatory process. 2. Multiple bilateral pulmonary nodules with a combination of cluster/tree-in-bud and more isolated distribution. If there is no history of malignancy, further evaluation with Fleischner's criteria is recommended (see below). 3. Mild left-sided hydronephrosis versus peripelvic cysts. Further evaluation could be obtained with a renal ultrasound as clinically warranted. 4. Multiple nondisplaced bilateral rib deformities, recommend correlation with point tenderness along the bilateral rib cages. 5. Too small to characterize liver hypodensity in the left hepatic lobe, attention on follow-up in future examinations recommended. According to the UPDATED 2017 Fleischner Society recommendations, the advised follow-up imaging is CT follow-up at 3 to 6 months.
--- NOTE | 2023-05-03 07:55 | ECG_ITS ---
Test Reason : CHEST DISCOMFORT Blood Pressure : / mmHG Vent. Rate : 062 BPM Atrial Rate : 062 BPM P-R Int : 156 ms QRS Dur : 092 ms QT Int : 398 ms P-R-T Axes : 077 077 065 degrees QTc Int : 403 ms Normal sinus rhythm Incomplete right bundle branch block Borderline ECG No previous ECGs available Referred By: Generic ED Physician Electronically Signed By:Deep Ennis
[2023-05-03 08:01] VITALS: BP 157/69; PULSE 65; RESP 16; O2SAT 100; BMI 19.8
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
[2023-05-03 08:26] LABS: MANUAL DIFF FLAG NO
[2023-05-03 08:27] LABS: Basophils Percent Auto 0.3 % (0-2); Eosinophils Percent Auto 0.3 % (0-4); Hematocrit 35.9 % (37.0-47.0); Hemoglobin 12.4 g/dl (12.0-16.0); Imm Gran Abs Auto 0.01 X10*3/uL (0.00-0.03); Imm Gran Pct Auto 0.2 % (0.0-0.4); Lymphocytes Absolute Auto 2.1 X10*3/uL (1.2-4.9); Mean Corpuscular HGB Conc 34.5 g/dl (31.0-35.0); Mean Corpuscular Volume 92.8 fL (80.0-98.0); Monocytes Absolute Auto 0.4 X10*3/uL (0.1-1.2); Monocytes Percent Auto 6.1 % (2-11); Neutrophils Absolute Auto 3.9 x10*3/uL (2.0-8.3); Neutrophils Percent Auto 60.1 % (45-73); Platelet Count 210 X10*3/uL (160-400); Red Blood Count 3.87 X10*6/uL (4.20-5.50); Red Cell Distribution Width 12.8 % (11.0-16.0); White Blood Count 6.4 X10*3/uL (4.8-10.8)
[2023-05-03] MEDS: Ondansetron ODT 4 MG TAB.RAPDIS TRANSLINGU (08:31)
[2023-05-03 08:37] LABS: INTERNATIONAL NORM RATIO 0.9 (0.9-1.1); Prothrombin Time 11.3 SEC (11.1-13.3)
[2023-05-03 08:44] LABS: D Dimer High Sensitivity < 150 NG/ML
[2023-05-03 08:45] LABS: COVID-19 Test Negative (Negative); IDNOW Serial# 152EDE1D
[2023-05-03 08:53] LABS: B Type Natriuretic Peptide 33 pg/mL (<100)
[2023-05-03 08:55] LABS: Alanine Aminotransferase 17 U/L (0-31); Albumin Level 4.2 g/dL (3.5-5.0); Alkaline Phosphatase 72 U/L (39-117); Anion Gap 15 (12-20); Aspartate Amino Transferase 19 U/L (5-31); Bilirubin Total 0.5 mg/dL (0.0-1.0); Blood Urea Nitrogen 9 mg/dL (9-16); Calcium 10.1 mg/dL (8.4-10.2); Carbon Dioxide 23 mmol/L (22-29); Chloride 105 mmol/L (96-108); Creatinine Clr Calc Pharmacy 46.3; Estimated Glomerular Filt Rate > 60; Glucose Random 104 mg/dL (60-115); Magnesium 2.1 mg/dL (1.6-2.6); Potassium 3.5 mmol/L (3.3-5.1); Sodium 139 mmol/L (135-145); Total Protein 6.9 g/dL (6.5-8.0)
[2023-05-03 09:02] LABS: Troponin-I High Sensitivity < 2.7 ng/L (<3.5-17.0)
[2023-05-03 12:06] LABS: Amphetamine Screen Urine Not Detected (Not Detect); Barbiturates, Urine Not Detected (Not Detect); Benzodiazepines Screen Urine Not Detected (Not Detect); Cannabinoid Screen Urine Not Detected (Not Detect); Cocaine Screen Urine Not Detected (Not Detect); Fentanyl, urine Not Detected (Not Detect); Opiate Screen Urine Not Detected (Not Detect); Phencyclidine Screen Urine Not Detected (Not Detect)
[2023-05-03 12:32] LABS: Acetaminophen LAB < 3 mcg/mL (<30); Ethanol < 10 mg/dL; Salicylate < 5.0 mg/dL (15-30)
[2023-05-03 13:51] VITALS: BP 144/80; PULSE 73; RESP 18; O2SAT 100
[2023-05-03 14:38] LABS: Appearance Urine Clear; Color Urine Yellow; Glucose Urine UA Negative (Negative); Leukocyte Esterase Urine Negative (Negative); Nitrite Urine Negative (Negative); PH 7.5 (5.0-9.0); Specific Gravity - Urine <= 1.005 (1.005-1.025); Urine Blood Negative (Negative); Urine Ketones Negative (Negative); Urine Protein Negative (Neg-Trace)
[2023-05-03 16:00] VITALS: BP 154/75; PULSE 60; O2SAT 96
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
[2023-05-03 20:34] VITALS: BP 150/65; PULSE 90; RESP 16; TEMP 36.2; O2SAT 100
[2023-05-03] MEDS: Doxycycline Monohydrate 100 MG CAPSULE PO (20:35)
[2023-05-03] MEDS: risperiDONE 0.25 MG TABLET PO (20:36)
[2023-05-04 07:35] VITALS: BP 117/57; PULSE 64; RESP 16; TEMP 36.2; O2SAT 100
[2023-05-04] MEDS: Doxycycline Monohydrate 100 MG CAPSULE PO ×2 (08:21→20:04)
[2023-05-04] MEDS: risperiDONE 0.25 MG TABLET PO ×2 (08:22→20:04)
[2023-05-04] MEDS: Acetaminophen 325 MG TABLET 650 MG PO ×2 (08:27→20:04)
[2023-05-04 09:19] VITALS: BP 164/69; PULSE 71; RESP 20; TEMP 36.4; O2SAT 98
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
[2023-05-04 19:50] VITALS: BP 130/60; PULSE 78; RESP 18; TEMP 36.7; O2SAT 100
[2023-05-05 07:20] VITALS: BP 131/63; PULSE 66; RESP 16; TEMP 36; O2SAT 98
[2023-05-05] MEDS: Doxycycline Monohydrate 100 MG CAPSULE PO ×2 (08:49→21:01)
[2023-05-05] MEDS: risperiDONE 0.25 MG TABLET PO ×2 (08:49→21:01)
[2023-05-05] MEDS: Acetaminophen 325 MG TABLET 650 MG PO (09:54)
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
[2023-05-05 20:10] VITALS: BP 125/57; PULSE 77; RESP 16; TEMP 36.2; O2SAT 100
[2023-05-06 07:25] VITALS: BP 120/62; PULSE 83; RESP 16; TEMP 36.7; O2SAT 100
[2023-05-06] MEDS: risperiDONE 0.25 MG TABLET PO (08:53)
[2023-05-06] MEDS: Doxycycline Monohydrate 100 MG CAPSULE PO ×2 (08:53→21:09)
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
[2023-05-06] MEDS: risperiDONE 0.25 MG TABLET 0.5 MG PO (21:08)
[2023-05-06 21:11] VITALS: BP 122/58; PULSE 80; RESP 14; TEMP 36.9; O2SAT 100
[2023-05-07 07:40] VITALS: BP 106/64; PULSE 77; RESP 16; TEMP 37.1; O2SAT 100
[2023-05-07] MEDS: Doxycycline Monohydrate 100 MG CAPSULE PO ×2 (08:17→21:30)
[2023-05-07] MEDS: risperiDONE 0.25 MG TABLET 0.5 MG PO ×2 (08:18→21:30)
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
[2023-05-07 21:32] VITALS: BP 130/60; PULSE 84; RESP 14; TEMP 37.1; O2SAT 99
[2023-05-08 07:30] VITALS: BP 129/59; PULSE 70; RESP 14; TEMP 36.3; O2SAT 100
[2023-05-08] MEDS: Doxycycline Monohydrate 100 MG CAPSULE PO ×2 (08:33→21:22)
[2023-05-08] MEDS: risperiDONE 0.25 MG TABLET 0.5 MG PO ×2 (08:33→21:22)
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
[2023-05-08 20:40] VITALS: BP 109/57; PULSE 80; RESP 17; TEMP 36.5; O2SAT 99
[2023-05-09 07:30] VITALS: BP 120/69; PULSE 86; RESP 14; TEMP 36.6; O2SAT 97
[2023-05-09] MEDS: Doxycycline Monohydrate 100 MG CAPSULE PO (09:20)
[2023-05-09] MEDS: risperiDONE 0.25 MG TABLET 0.5 MG PO (09:21)
== END 2023-05-09 11:49 | disposition home or self-care (01) | DRG 885 ==
LOC: HO.ED 14:01 → HO.PADLT16 15:44
PROVIDERS: Physician Assistant; Admitting Provider Psychiatry & Neurology Psychiatry; Emergency Provider Emergency Medicine; PCP Internal Medicine; Visit Provider Psychiatry & Neurology Psychiatry
DX: F22 Delusional disorders (principal); Z20.822 Contact with and (suspected) exposure to COVID-19; Z79.899 Other long term (current) drug therapy
CPT/HCPCS: 36415; 71045; 71250; 80053; 80143; 80179; 80307; 81003; 83735; 83880; 84484; 85025; 85379; 85610; 87635; 93005; 99285; S9485

== ENCOUNTER → 2023-05-03 07:55 | Outpatient (BNV) | payer OTHER, MEDICARE, SELFPAY | PROVIDERS: Admitting Provider Psychiatry & Neurology Psychiatry; Emergency Provider Emergency Medicine; PCP Internal Medicine; Visit Provider Internal Medicine Cardiovascular Disease | DX: R07.9 Chest pain, unspecified (principal) | CPT/HCPCS: 93010 ==

== ENCOUNTER → 2023-05-03 15:42 | Outpatient (BNV) | payer MEDICARE, OTHER, SELFPAY | PROVIDERS: Admitting Provider Psychiatry & Neurology Psychiatry; Emergency Provider Emergency Medicine; PCP Internal Medicine; Visit Provider Psychiatry & Neurology Psychiatry | DX: F22 Delusional disorders (principal) | CPT/HCPCS: 90792; 99231; 99232; 99238 ==